=== PATIENT | female | born 1985 | race Caucasian/White ===

== ENCOUNTER 2018-07-29 18:25 | Emergency (ER) | payer OTHER ==
[2018-07-29] MEDS: HYDROCODONE/APAP (5/325) TAB PO (21:25)
== END 2018-07-29 23:00 | disposition home or self-care (01) ==
LOC: FTE 18:25
DX: S90.01XA Contusion of right ankle, initial encounter (principal); X50.1XXA Overexertion from prolonged static or awkward postures, initial encounter; Y92.89 Other specified places as the place of occurrence of the external cause
CPT/HCPCS: 73610; 73610-RT; 99283-25